=== PATIENT | female | born 1930 | race Caucasian/White ===

== ENCOUNTER 2016-08-24 18:07 | Emergency (ER) | payer SELFPAY ==
--- NOTE | 2016-08-24 21:23 | DIAGNOSTIC IMAGING REPORT ---
PROCEDURE: XR CHEST 2 VIEW INDICATION: SHORTNESS OF BREATH, initial encounter TECHNIQUE: PA and lateral view. COMPARISON: None. FINDINGS: Mild bibasilar increased interstitial markings. Cardiovascular structures are normal. Bony thorax is unremarkable. IMPRESSION: 1. Mild bibasilar pneumonia versus chronic interstitial changes
--- NOTE | 2016-08-24 22:31 | DIAGNOSTIC IMAGING REPORT ---
PROCEDURE: CTA THORAX WITH CONTRAST INDICATION: CHEST PAIN, initial encounter TECHNIQUE: 80 ml of Isovue 370 was injected intravenously and axial images were obtained of the entire thorax with 3D sagittal and coronal MIP reconstructions. COMPARISON: Chest x-ray 08/24/2016 FINDINGS: No evidence of pulmonary emboli. Small right lower lobe and mild left lower lobe alveolar opacities consistent with pneumonia. Right middle lobe and lingular bronchiectasis. Right basilar calcified granuloma. Peripheral opacities in both upper lobes suggestive of scarring. No adenopathy or effusion. Prominent pulmonary artery suggestive of pulmonary hypertension. No aortic dissection or aneurysm. Mild atherosclerosis of the aorta and the coronaries. Borderline cardiomegaly. The visualized upper abdomen is unremarkable. No suspicious osseous lesions IMPRESSION: 1. No evidence of pulmonary emboli 2. Bibasilar infiltrate suggestive of pneumonia 3. Right middle lobe and lingular bronchiectasis 4. Old granulomatous disease 5. Prominent pulmonary suggestive of pulmonary hypertension 6. Borderline cardiomegaly 7. Results discussed with Dr. Salazar
--- NOTE | 2016-08-25 02:19 | ED ORDER SUMMARY ---
..... Patient: RAOUL BENTON OrderSheet [facility] VisitID: [id number] Chen [place], [place] [id number] 86y, F Registration Date/Time: 08/24/2016 ORDER SHEET Weight: 38.5 kg (stated) Allergies: No Known Drug Allergy GENERAL ORDERS: Chest 2V Urgent (20:27 08/24/2016 Liseth Barrientos) (Ack 20:30 TBergley) (20:36 TLewis R.N.) CBC w Diff Urgent (20:27 08/24/2016 Liseth Barrientos) (Ack 20:30 TBergley) (20:36 TLewis R.N.) CMP Urgent (20:08/24/2016 Liseth Barrientos) (Ack 20:30 TBergley) (20:36 TLewis R.N.) UA-Culture if indicated Urgent (20:27 08/24/2016 Liseth Barrientos) (Ack 20:30 TBergley) (21:39 TLewis R.N.) BNP Urgent (20:27 08/24/2016 Liseth Barrientos) (Ack 20:30 TBergley) (20:36 TLewis R.N.) D-Dimer Urgent (20:27 08/24/2016 Liseth Barrientos) (Ack 20:30 TBergley) (20:36 TLewis R.N.) CTA Thorax w Cont (No) (20/0.9) Urgent (21:33 08/24/2016 Liseth Barrientos) (Ack 21:35 TBergley) (21:42 TLewis R.N.) PCT (Procalcitonin) Urgent (21:40 08/24/2016 Liseth Barrientos) (21:42 TLewis R.N.) MEDICATION ORDERS: Albuterol Neb Tx 2.5 mg (HHN) (23:56 08/24/2016 Loli HEARD) (0:13 TLewis R.N.) Solu-MEDROL IM 125 mg (NOW) (23:56 08/24/2016 Loli HEARD) (0:40 TLewis R.N.) IV FLUIDS: IV Saline Lock (20:27 08/24/2016 Liseth Barrientos) (20:36 TLewis R.N.) Ceftriaxone IV 1 gm/50mL (NOW) (23:58 08/24/2016 Loli HEARD) (0:13 TLewis R.N.) ORDER SHEET NOTES: This document has not been locked and should not be saved in the medical record.
--- NOTE | 2016-08-25 02:19 | ED ORDER SUMMARY ---
..... Patient: RAOUL BENTON OrderSheet [facility] VisitID: [id number] [place], [place] [id number] 86y, F Registration Date/Time: 08/24/2016 ORDER SHEET Weight: 38.5 kg (stated) Allergies: No Known Drug Allergy GENERAL ORDERS: Chest 2V Urgent (20:27 08/24/2016 Liseth Barrientos) (Ack 20:30 TBergley) (20:36 TLewis R.N.) CBC w Diff Urgent (20:27 08/24/2016 Liseth Barrientos) (Ack 20:30 TBergley) (20:36 TLewis R.N.) CMP Urgent (20:08/24/2016 Liseth Barrientos) (Ack 20:30 TBergley) (20:36 TLewis R.N.) UA-Culture if indicated Urgent (20:27 08/24/2016 Liseth Barrientos) (Ack 20:30 TBergley) (21:39 TLewis R.N.) BNP Urgent (20:27 08/24/2016 Liseth Barrientos) (Ack 20:30 TBergley) (20:36 TLewis R.N.) D-Dimer Urgent (20:27 08/24/2016 Liseth Barrientos) (Ack 20:30 TBergley) (20:36 TLewis R.N.) CTA Thorax w Cont (No) (20/0.9) Urgent (21:33 08/24/2016 Liseth Barrientos) (Ack 21:35 TBergley) (21:42 TLewis R.N.) PCT (Procalcitonin) Urgent (21:40 08/24/2016 Liseth Barrientos) (21:42 TLewis R.N.) MEDICATION ORDERS: Albuterol Neb Tx 2.5 mg (HHN) (23:56 08/24/2016 Loli HEARD) (0:13 TLewis R.N.) Solu-MEDROL IM 125 mg (NOW) (23:56 08/24/2016 Loli HEARD) (0:40 TLewis R.N.) IV FLUIDS: IV Saline Lock (20:27 08/24/2016 Liseth Barrientos) (20:36 TLewis R.N.) Ceftriaxone IV 1 gm/50mL (NOW) (23:58 08/24/2016 Loli HEARD) (0:13 TLewis R.N.) ORDER SHEET NOTES: This document has not been locked and should not be saved in the medical record.
--- NOTE | 2016-08-25 02:19 | ED CLINICAL REPORT ---
Clinical Report - Physicians/Mid Levels [place] [address] [address] [address] 08/24/2016 18:08 Patient: RAOUL BENTON *This is a preliminary document and is subject to change Time Seen: 19:58; initial patient contact. Arrived- By private vehicle. Historian- patient. HISTORY OF PRESENT ILLNESS Chief Complaint: COUGH. This started several days ago 7 days ago and is still present (persistent). The illness is described as mild. The patient has had sputum production, a cough and chest discomfort. No difficulty breathing, chest pain, fever, chills or sinus drainage. Additional history - No known contact with a sick individual. Similar symptoms previously: None. Recent medical care: Not recently seen/assessed. REVIEW OF SYSTEMS No pedal edema, calf pain or vomiting. All systems otherwise negative, except as recorded above. PAST HISTORY PCP: Dr Phu Hinds HTN. Surgeries: No history of previous surgery. Additional Surgeries: no known surgeries. Medications: Losartan Potassium Oral. Allergies: No Known Drug Allergy. SOCIAL HISTORY Never smoker. No alcohol use or drug use. ADDITIONAL NOTES The nursing notes have been reviewed with agreement regarding the chief complaint, PMH and patient medications and allergies. PHYSICAL EXAM Vital Signs: 08/24/2016 19:37 BP: 172/76. HR: 94. RR: 18. O2 saturation: 96%. Temp: 98.9 F. Have been reviewed. Hypertensive. Heart rate normal. Respiratory rate normal. Temperature normal. Oxygen saturation normal. Appearance: Alert. No acute distress. Eyes: Eyes normal inspection. ENT: Pharynx normal. Neck: Normal inspection. No JVD. CVS: Normal heart rate and rhythm. 2/6 holosystolic systolic murmur. Respiratory: Mild respiratory distress with accessory muscle use and retractions. Mild bilateral rhonchi present posteriorly. No decreased breath sounds, wheezes or prolonged expiration. Abdomen: Soft and nontender. No organomegaly. Skin: Poor skin turgor. Skin warm and dry. Normal skin color. Extremities: No calf tenderness. No lower extremity edema. Neuro: Oriented X 3. LABS, X-RAYS, AND EKG Chest X-ray: Infiltrate in the right lower lobe and left lower lobe. (1. Mild bibasilar pneumonia versus chronic interstitial changes). Views: PA and lateral. Technique: good. The X-rays were independently viewed by me, interpreted by the radiologist and contemporaneously by me and discussed with the radiologist. Prior films were not available for comparison. Interpretation time: 21:10. Laboratory Tests: UA-Culture if indicated: (DEMETRI: 08/24/2016 21:40) ( MsgRcvd 08/24/2016 21:58) Final results Test Result Flag Units (Reference) URINE COLOR YELLOW URINE APPEARANCE SL CLOUDY URINE GLUCOSE NEGATIVE (NEGATIVE) URINE BILIRUBIN NEGATIVE (NEGATIVE) URINE KETONE TRACE (NEGATIVE) URINE SPECIFIC GRAVITY 1.025 (1.010-1.030) URINE PH 6.0 (5.0-8.0) URINE PROTEIN 1+ (NEGATIVE) URINE UROBILINOGEN 0.2 EU/dL (0.2-1.0) URINE NITRITE POSITIVE (NEGATIVE) URINE BLOOD 1+ (NEGATIVE) URINE LEUK ESTERASE NEGATIVE (NEGATIVE) URINE RBC 1-3 rbc/hpf (0-1) URINE WBC 1-3 wbc/hpf (0-1) URINE EPITHELIAL CELLS 0-1 EPI/hpf (0-5) URINE BACTERIA MANY (4+) (NONE SEEN) URINE COMMENT CULTURE INDICATED URINE CULTURES ARE SET-UP BASED ON THE FOLLOWING CRITERIA:POSITIVE NITRITEPOSITIVE LEUKOCYTE ESTERASEGREATER THAN 10 WHITE BLOOD CELLSMODERATE (2+) OR GREATER BACTERIA CBC w Diff: (DEMETRI: 08/24/2016 20:00) ( MsgRcvd 08/24/2016 20:46) Final results Test Result Flag Units (Reference) WHITE BLOOD COUNT 6.6 K/uL (4.5-11.5) RED BLOOD COUNT 4.28 M/uL (4.00-5.20) HEMOGLOBIN 12.9 gm/dL (12.0-16.0) HEMATOCRIT 39.8 % (36.0-46.0) MEAN CELL VOLUME 93 fL (80-100) MEAN CORPUSCULAR HGB 30 pg (26-34) MEAN CORPUSCULAR HGB CONC 33 g/dL (31-37) RED CELL DISTRIBUTION WIDTH 13.5 % (11.6-14.8) PLATELET COUNT 224 K/uL (150-400) NEUTROPHIL % 86.8 H % (50-75) LYMPH % 6.8 L % (25-40) MONO % 6.4 % (3-14) EOSINOPHIL % 0 % (0-4) BASOPHIL % 0 % (0-2) [id number]: (DEMETRI: 08/24/2016 20:00) ( MsgRcvd 08/24/2016 20:47) Final results Test Result Flag Units (Reference) D-DIMER QUANTITATIVE 0.79 H ug/mLFEU (0.27-0.52) The primary value of this quantitative assay relates toits negative predictive value (i.e. exclusion) of pulmonaryembolism/deep vein thrombosis/DIC.Elevated levels of d-dimer may also occur with:, age, cancer, inflammation, liver disease,post-op, infection, hematoma, coronary disease, peripheralarteriopathy, bleeding disorders and thrombolytic treatment.Results should be correlated with other clinical andradiological data.Testing Methodology: Latex Immunoassay [id number]: (DEMETRI: 08/24/2016 20:00) ( [facility] [place] 08/24/[place] 22:11) Final results Test Result Flag Units (Reference) PROCALCITONIN <0.5 ng/mL (0-0.5) PCT Concentration: Interpretation : Risk/option for action PCT <=0.5 ng/mL : Systemic : Low risk forinfection(sepsis): progression to severeis not likely. : systemic infection.Local bacterial : CAUTION-PCT levelsinfection is : below 0.5 ng/mL do notpossible. : exclude an infection,because localizedinfections (withoutsystemic signs) may beassociated with suchlow levels. If PCT ismeasured very earlyafter a bacterialchallenge (usually <6hours), these valuesmay still be low. Inthis case PCT shouldbe re-assessed 6-24hours later. PCT >0.5 and : Systemic infection: Moderate risk for<= 2 ng/mL : (sepsis) is : progression to severepossible, but : systemic infection.other conditions : The patient should beare known to : closely monitoredelevate PCT. : both clinically andby re-assessing PCTwithin 6-24 hours. PCT > 2 ng/mL : Systemic infection: High risk for(sepsis) is likely: progression to severeunless other : systemic infection.causes are known. : PCT >= 10 ng/mL : Important systemic: High likelihood ofinflammatory : severe sepsis orresponse, almost : septic shock.exclusively due to:severe bacterial :sepsis or septic :shock. : BNP: (DEMETRI: 08/24/2016 20:00) ( [facility] [place] 08/24/2016 21:27) Final results Test Result Flag Units (Reference) B-TYPE NATRIURETIC PEPTIDE 45.7 pg/ml (5-100) CMP: (DEMETRI: 08/24/2016 20:00) ( MsgRcvd 08/24/2016 20:49) Final results Test Result Flag Units (Reference) GLUCOSE 119 H mg/dL (70-110) BUN 35 H mg/dL (7-18) CREATININE 0.8 mg/dL (0.6-1.3) Estimated GFR >60 mL/min Estimated GFR- >60 mL/min Note: Persistent reduction over 3 months in eGFR<60 mL/min/1.73 m2 defines CKD. Patients with eGFR values>=60 mL/min/1.73 m2 may also have CKD if evidence ofpersistent proteinuria. Additional information may be foundat www.kidney.org. SODIUM 137 mmol/L (136-145) POTASSIUM 3.7 mmol/L (3.5-5.1) CHLORIDE 99 mmol/L (98-107) CARBON DIOXIDE 32 mmol/L (21-32) CALCIUM 9.0 mg/dL (8.5-10.1) TOTAL PROTEIN 8.6 H g/dL (6.4-8.2) ALBUMIN 3.4 g/dL (3.3-5.0) BILIRUBIN, TOTAL 0.2 mg/dL (0.0-1.0) ALKALINE PHOSPHATASE 69 U/L (46-116) AST (SGOT) 33 U/L (15-37) ALT (SGPT) 23 U/L (12-78) . PROGRESS AND PROCEDURES Course of Care: 21:40 08/24/16. Case signed out to Dr. Salazar, elevated D dimer and ? PNA on CXR, will obtain CTA chest. 22:25 08/24/16. Assumed care from Dr Jiang due to change of shift/ R MD Martin 22:31 08/24/16. pneumonia bronchiectasis, UTI. Disposition: Discharged. CLINICAL IMPRESSION Pneumonia. COPD. Urinary tract infection. INSTRUCTIONS (SEE YOUR DR SUNDAY RETURN HERE IF WORSE PROBLEMS BREATHING OR IF NOT KEEPING MEDICINES DOWN.). Prescription Medications: Albuterol HFA oral inhaler: inhale 1 to 2 puffs every four to six hours as needed for difficulty breathing. Dispense one (1) unit. No refills. Prednisone 20 mg: take 3 orally every day for 5 days. Dispense fifteen (15). No refills. Trimethoprim-Sulfamethoxazole DS: take 1 tablet orally every 12 hours for 7 days. Dispense fourteen (14). No refills. Zithromax 250 mg tablets: take 2 orally today, followed by 1 daily for the next 4 days. No refills. Substitution is permissible. Follow-up: Follow up with doctor SEMAR in three days. Ameya Salazar MD
--- NOTE | 2016-08-25 02:19 | ED NURSING NOTES ---
Clinical Report - Nurses [facility] [place] [address] 08/24/2016 18:08 Patient: RAOUL BENTON TRIAGE Triage time 19:38. Acuity: LEVEL 3. Chief Complaint: COUGH. --19:44 Fredo Castro R.N. 19:37 08/24/16. BP: 172/76. HR: 94. RR: 18. O2 saturation: 96%. Temp: 98.9 F. Pain level now 0/10. --19:44 Fredo Castro R.N. Weight: 38.5 kg stated. Height/Length: 65 inches Per Patient. BMI: 14.1. --19:43 Fredo Castro R.N. Medications Losartan Potassium Oral. --19:41 Fredo Castro R.N. Medication/allergy information source: the patient's family. --19:44 Fredo Castro R.N. Allergies No Known Drug Allergy. --19:42 Fredo Castro R.N. History Arrived by private vehicle. Historian: family. Accompanied by family and daughter. Onset. (several days). ( Pt came in with a cough and weakness for several days. Daughter denies any fever. Pt is nothing having any pain. Pt has not wanted to eat for the past few days. Pt walks with a cane.). Treatment ACCREDITATION MANAGER: None. PAST MEDICAL HX: ( Daughter is not too familiar with her past medical hx, but does have a hx of HTN.). SOCIAL HX: Never smoker. No alcohol use or drug use. --19:44 Fredo Castro R.N. PROBLEMS: Hypertension. --19:43 Fredo Castro R.N. Interventions ID band on patient. To treatment room. --19:44 Fredo Castro R.N. PHYSICAL ASSESSMENT GENERAL / NEURO / PSYCH: Alert. Oriented X 4. Appears in no acute distress. HEENT: Pupils equal, round and reactive to light. Ears within normal limits. Nares within normal limits. Mouth within normal limits upon inspection. Pharynx within normal limits. Voice within normal limits. Mucous membranes are pink. RESPIRATORY: Respirations not labored. Rhonchi bilaterally; abnormal breath sounds right lung; left lung. Nonproductive cough. ( Pt denies any sob.). CVS: Normal sinus rhythm noted. Capillary refill less than 2 seconds. SKIN: Skin is warm and dry. Normal skin turgor. --19:46 Fredo Castro R.N. NURSING PROGRESS NOTES The plan of care for this patient has been created. Patient gowned. Head of bed elevated. Reassurance given. Two patient identifiers checked. Call light placed in reach. Side rails up x 1. Bed placed in lowest position. --19:46 Fredo Castro R.N. 19:59 08/24/2016 Site #1 started via IV in the right antecubital space with an 20g angiocath, with aseptic technique and good blood return; one attempt. Blood drawn: rainbow set. Labeled in the presence of the patient and sent to the lab. Saline lock flushed with 10 mL saline. --19:59 Fredo Castro R.N. ( Pt is laying in bed with no complaints and no sob.). --21:07 Fredo Castro R.N. 21:06 08/24/16. BP: 144/66. HR: 87. RR: 14. O2 saturation: 92%. Pain level now 0/10. --21:07 Fredo Castro R.N. Patient transported to CT. (21:42). --21:42 Fredo Castro R.N. 23:47 08/24/16. BP: 147/73. HR: 90. RR: 13. O2 saturation: 93%. Pain level now 0/10. --23:53 Fredo Castro R.N. 00:13 08/25/2016 Started 1 gm of Ceftriaxone IVPB; at 50 mL/hr over 30 minute(s) via site #1 via IV pump. Allergies verified and confirmed 5 rights. IV patency established. IV site checked: no pain, redness, or swelling. IV flushed thoroughly pre- and post-medication administration. --00:13 Fredo Castro R.N. 00:08/25/2016 Albuterol Neb TX 1 unit dose given. Given by the respiratory therapist. Allergies verified and confirmed 5 rights. --00:13 Fredo Castro R.N. 00:29 08/25/2016 Ceftriaxone IVPB Discontinued: completed upon discharge. Total amount infused: 50 mL. IV patency established. IV site checked: no pain, redness, or swelling. IV flushed thoroughly. --00:29 Fredo Castro R.N. 00:40 08/25/2016 Solu-Medrol (MethylPREDNISolone Sodium Succ) IM 125 mg given. Given in the right deltoid. Allergies verified and confirmed 5 rights. --00:40 Fredo Castro R.N. DISPOSITION / DISCHARGE Departure time: 02:33. Condition at departure: improved. No learning barriers present. Discharge instructions provided and reviewed with the family. Reviewed warnings. Reviewed medication(s). Treatments reviewed. Reviewed referrals. Patient and family verbalized understanding. Written instructions provided in Serbian. The patient was discharged by the physician. She was discharged home and accompanied by family. She left the Emergency Department ambulatory, via private vehicle and (cane). Family member driving. --02:33 Fredo Castro R.N. 02:32 08/25/16. BP: 145/67. HR: 85. RR: 15. O2 saturation: 94%. Pain level now 0/10. --02:33 Fredo Castro R.N. Locked/Released at 08/25/2016 2:33 by Fredo Castro R.N.
--- NOTE | 2016-08-27 20:12 | ED MAR SUMMARY ---
..... Medication Administration Record [facility] [address] [place] [address] Patient: RAOUL BENTON Visit ID: [id number] 86y, F Weight: 38.5 kg Height/Length: 65 in BMI: 14.1 ALLERGIES: No Known Drug Allergy Given 00:13 08/25/2016 Fredo Castro R.N. Medication Administered: ALBUTEROL [NEB TX], Dose: 1 unit dose Neb TX. Medication Ordered: Albuterol Neb Tx 2.5 mg ([facility]). Start 00:13 08/25/2016 Fredo Castro R.N., Stop 00:29 08/25/2016 Fredo Castro R.N. Medication Administered: CEFTRIAXONE [IVPB], Dose: 1 gm IVPB over 30 minute(s), Rate: 50 mL/hr, Site: #1 right AC. Medication Ordered: Ceftriaxone IV 1 gm/50mL (NOW). Given 00:40 08/25/2016 Fredo Castro R.N. Medication Administered: SOLU-MEDROL [IM] (METHYLPREDNISOLONE SODIUM SUCC), Dose: 125 mg IM. Medication Ordered: Solu-MEDROL IM 125 mg (NOW).
--- NOTE | 2016-08-27 20:12 | ED MED RECONCILIATION SUMMARY ---
Patient: RAOUL BENTON Medication Reconciliation Report [facility] VisitID: [id number] [place] [address] 86y, F Registration Date/Time: 08/24/2016 Weight: 38.5 kg Height/Length: 65 in. BMI: 14.1 ALLERGIES: No Known Drug Allergy The patient's Home Medications are listed below: THE FOLLOWING MEDICATIONS NEED TO BE RECONCILED: Losartan Potassium Oral The source(s) of the original Home Medication information: patient's family member The following Medications were given to the patient in the Emergency Department: Ceftriaxone [IVPB] IVPB bolus 0, then 1 gm 50 mL/hr, administered: 08/25/2016 12:13:00 AM Albuterol [Neb Tx] Neb TX 1 unit dose, administered: 08/25/2016 12:13:00 AM Solu-Medrol [IM] IM 125 mg, administered: 08/25/2016 12:40:00 AM The following Medications were prescribed to the patient: Albuterol HFA oral inhaler: inhale 1 to 2 puffs every four to six hours as needed for difficulty breathing. Dispense one (1) unit. No refills. -- Ameya Salazar MD Prednisone 20 mg: take 3 orally every day for 5 days. Dispense fifteen (15). No refills. -- Ameya Salazar MD Trimethoprim-Sulfamethoxazole DS: take 1 tablet orally every 12 hours for 7 days. Dispense fourteen (14). No refills. -- Ameya Salazar MD Zithromax 250 mg tablets: take 2 orally today, followed by 1 daily for the next 4 days. No refills. Substitution is permissible. -- Ameya Salazar MD
--- NOTE | 2016-08-27 20:12 | ED MED RECONCILIATION SUMMARY ---
Patient: RAOUL BENTON Medication Reconciliation Report [facility] VisitID: [id number] [place] [address] 86y, F Registration Date/Time: 08/24/2016 Weight: 38.5 kg Height/Length: 65 in. BMI: 14.1 ALLERGIES: No Known Drug Allergy The patient's Home Medications are listed below: THE FOLLOWING MEDICATIONS NEED TO BE RECONCILED: Losartan Potassium Oral The source(s) of the original Home Medication information: patient's family member The following Medications were given to the patient in the Emergency Department: Ceftriaxone [IVPB] IVPB bolus 0, then 1 gm 50 mL/hr, administered: 08/25/2016 12:13:00 AM Albuterol [Neb Tx] Neb TX 1 unit dose, administered: 08/25/2016 12:13:00 AM Solu-Medrol [IM] IM 125 mg, administered: 08/25/2016 12:40:00 AM The following Medications were prescribed to the patient: Albuterol HFA oral inhaler: inhale 1 to 2 puffs every four to six hours as needed for difficulty breathing. Dispense one (1) unit. No refills. -- Ameya Salazar MD Prednisone 20 mg: take 3 orally every day for 5 days. Dispense fifteen (15). No refills. -- Ameya Salazar MD Trimethoprim-Sulfamethoxazole DS: take 1 tablet orally every 12 hours for 7 days. Dispense fourteen (14). No refills. -- Ameya Salazar MD Zithromax 250 mg tablets: take 2 orally today, followed by 1 daily for the next 4 days. No refills. Substitution is permissible. -- Ameya Salazar MD
--- NOTE | 2016-08-27 20:12 | ED DISCHARGE INSTRUCTIONS ---
Patient: RAOUL BENTON General Instructions [facility] VisitID: [id number] [place] [address] 86y, F Registration Date/Time: 08/24/2016 Pneumonia. COPD. Urinary tract infection. INSTRUCTIONS (SEE YOUR DR SUNDAY RETURN HERE IF WORSE PROBLEMS BREATHING OR IF NOT KEEPING MEDICINES DOWN.). Prescription Medications: Albuterol HFA oral inhaler: inhale 1 to 2 puffs every four to six hours as needed for difficulty breathing. Dispense one (1) unit. No refills. Prednisone 20 mg: take 3 orally every day for 5 days. Dispense fifteen (15). No refills. Trimethoprim-Sulfamethoxazole DS: take 1 tablet orally every 12 hours for 7 days. Dispense fourteen (14). No refills. Zithromax 250 mg tablets: take 2 orally today, followed by 1 daily for the next 4 days. No refills. Substitution is permissible. Follow-up: Follow up with doctor ANDRES in three days. Understanding of the discharge instructions verbalized by family. (Electronically signed by Ameya Salazar MD 08/27/2016 20:11)
--- NOTE | 2016-08-27 20:12 | ED DISCHARGE INSTRUCTIONS ---
Patient: RAOUL BENTON General Instructions [facility] VisitID: [id number] [place] [address] 86y, F Registration Date/Time: 08/24/2016 Pneumonia. COPD. Urinary tract infection. INSTRUCTIONS (SEE YOUR DR SUNDAY RETURN HERE IF WORSE PROBLEMS BREATHING OR IF NOT KEEPING MEDICINES DOWN.). Prescription Medications: Albuterol HFA oral inhaler: inhale 1 to 2 puffs every four to six hours as needed for difficulty breathing. Dispense one (1) unit. No refills. Prednisone 20 mg: take 3 orally every day for 5 days. Dispense fifteen (15). No refills. Trimethoprim-Sulfamethoxazole DS: take 1 tablet orally every 12 hours for 7 days. Dispense fourteen (14). No refills. Zithromax 250 mg tablets: take 2 orally today, followed by 1 daily for the next 4 days. No refills. Substitution is permissible. Follow-up: Follow up with doctor ANDRES in three days. Understanding of the discharge instructions verbalized by family. (Electronically signed by Ameya Salazar MD 08/27/2016 20:11)
--- NOTE | 2016-08-27 20:12 | ED MAR SUMMARY ---
..... Medication Administration Record [facility] [address] [place] [address] Patient: RAOUL BENTON Visit ID: [id number], F Weight: 38.5 kg Height/Length: 65 in BMI: 14.1 ALLERGIES: No Known Drug Allergy Given 00:13 08/25/2016 Fredo Castro R.N. Medication Administered: ALBUTEROL [NEB TX], Dose: 1 unit dose Neb TX. Medication Ordered: Albuterol Neb Tx 2.5 mg ([facility]). Start 00:13 08/25/2016 Fredo Castro R.N., Stop 00:29 08/25/2016 Fredo Castro R.N. Medication Administered: CEFTRIAXONE [IVPB], Dose: 1 gm IVPB over 30 minute(s), Rate: 50 mL/hr, Site: #1 right AC. Medication Ordered: Ceftriaxone IV 1 gm/50mL (NOW). Given 00:40 08/25/2016 Fredo Castro R.N. Medication Administered: SOLU-MEDROL [IM] (METHYLPREDNISOLONE SODIUM SUCC), Dose: 125 mg IM. Medication Ordered: Solu-MEDROL IM 125 mg (NOW).
== END 2016-08-25 02:30 | disposition home or self-care (01) ==
LOC: ED SRH 18:07
DX: J18.9 Pneumonia, unspecified organism (principal); J44.9 Chronic obstructive pulmonary disease, unspecified; N39.0 Urinary tract infection, site not specified; I10 Essential (primary) hypertension; Z79.899 Other long term (current) drug therapy
CPT/HCPCS: 90004; 90100; 90148; 90469; 91320; 91556; 93004; 95059